=== PATIENT | female | born 1980 | race African-American/Black ===

== ENCOUNTER 2018-05-05 09:56 | Emergency (ER) | payer OTHER ==
[~2018-05-05] VITALS: Ht 157.5 cm; Wt 95.3 kg
[~2018-05-05 09:56] MED LIST: ALDOMET250 MG; LISINOPRIL5 MG; TRIAMTERENE-HC1 EAC1
[2018-05-05 10:40] LABS: HEMOGLOBIN 12.9 gm/dL (12.0-15.0); POLYS 45.8 %; RDW-CV 15.3 % (10.5-14.5)
[2018-05-05 10:44] LABS: ABSOLUTE EOSINOPHILS 0.2 thou/uL (0.0-0.7); ABSOLUTE LYMPHOCYTES 2.2 thou/uL (0.8-5.3); ABSOLUTE MONOCYTES 0.4 thou/uL (0.0-1.2); ABSOLUTE NEUTROPHILS 2.4 thou/uL (1.6-8.1); BASOPHILS 0.7 %; HEMATOCRIT 38.2 % (37.0-47.0); LYMPHOCYTES 41.4 %; MCH 28.7 pg (26.0-34.0); MCHC 33.8 g/dL (28.0-37.0); MCV 85.1 fL (80.0-100.0); MONOCYTES 8.1 %; MPV 10.6 fl. (7.2-11.1); NUCLEATED RBCS 0 /100WBC; PLATELET COUNT* 91 thou/uL (150-400); RBC 4.49 mil/uL (4.20-5.00); WBC 5.3 thou/uL (4.0-11.0)
[2018-05-05 11:11] LABS: ANION GAP 9 mmol/L (7-16); BUN 13 mg/dL (7-18); CHLORIDE 104 mmol/L (98-107); CO2 26 mmol/L (21-32); GLUCOSE 111 mg/dL (70-99); SODIUM 139 mmol/L (136-145)
[2018-05-05] MEDS ORDERED: MAXZIDE-25 MG1 EACH PO (11:18)
[2018-05-05 11:19] LABS: ALBUMIN 3.6 g/dL (3.4-5.0); ALKALINE PHOSPHATASE 74 U/L (46-116); POTASSIUM 2.9 mmol/L (3.5-5.1); SGOT 20 U/L (15-37); SGPT 25 U/L (30-65); TOTAL BILIRUBIN 0.1 mg/dL (<0.1-1.0); TOTAL PROTEIN 8.1 g/dL (6.4-8.2); TROPONIN-I LEVEL <0.06 ng/mL (<0.06)
[2018-05-05] MEDS ORDERED: KLOR-CON 1010 MEQ PO (11:20)
[2018-05-05 12:46] VITALS: BP 189/107
--- NOTE | 2018-05-06 10:37 | EKG ---
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
== END 2018-05-05 12:47 | disposition home or self-care (01) ==
LOC: M.ERS 09:56
PROVIDERS: Personal Emergency Response Attendant
DX: I16.0 Hypertensive urgency (principal); E87.6 Hypokalemia; I10 Essential (primary) hypertension; F17.210 Nicotine dependence, cigarettes, uncomplicated